=== PATIENT | male | born 1965 | race Caucasian/White ===

== ENCOUNTER → 2018-02-27 | Outpatient (CLI) | payer OTHER ==
[~2018-02-27] MED LIST: CETI10TA17 PO; DEXL60CA PO; HYDR-34 PO; LISI-556 PO; METF-397 PO; SIMV20TA3 PO; SMV10T
--- NOTE | 2018-02-27 12:52 | Diagnostic Imaging Report ---
INDICATION: Dyspnea, history of bile duct tumor. PA and lateral chest obtained at 11:28 a.m. FINDINGS: Heart and mediastinal silhouette are normal in appearance. The lungs are clear. There is no pneumothorax or pleural fluid. There is a Port-A-Cath over the left chest with tip overlying the low SVC. Biliary catheter is seen over the right upper quadrant. IMPRESSION: No acute process in the chest. Dictated by: Dictated on workstation # [id number]
== END ==
LOC: RAD 10:56
PROVIDERS: ATTEND Nurse Practitioner Family
DX: R06.01 Orthopnea (principal); R06.00 Dyspnea, unspecified; Z87.19 Personal history of other diseases of the digestive system; Z95.828 Presence of other vascular implants and grafts
CPT/HCPCS: 71046

== ENCOUNTER 2018-11-15 10:57 | Outpatient (RCR) | payer OTHER ==
[~2018-11-15] VITALS: Ht 167.6 cm; Wt 49.4 kg
[2018-11-15] MEDS ORDERED: cefTRIAXone 1,000 MG/SWFI 10 ML IV PUSH IV SCH ×2 (11:00)
[2018-11-15] MEDS ORDERED: cefTRIAXone 1,000 MG IV (ROCEPHIN) VIAL ONE (11:09)
[2018-11-15] MEDS ORDERED: WATER (STERILE) FOR INJECTION 10 ML ONE (11:10)
[2018-11-15 11:30] VITALS: BP 123/88
== END 2019-02-13 | disposition home or self-care (01) ==
LOC: SDC 10:57
PROVIDERS: ATTEND Student in an Organized Health Care Education/Training Program
DX: R78.81 Bacteremia (principal)
CPT/HCPCS: 96374